=== PATIENT | female | born 1970 | race Caucasian/White ===

== ENCOUNTER 2016-08-09 13:17 | Emergency (ER) | payer MEDICARE | END 2016-08-09 16:22 | disposition home or self-care (01) | LOC: ER 13:17 | DX: S39.012A Strain of muscle, fascia and tendon of lower back, initial encounter (principal); R10.10 Upper abdominal pain, unspecified; R05 Cough; R51 Headache; R35.1 Nocturia; F31.9 Bipolar disorder, unspecified; K21.9 Gastro-esophageal reflux disease without esophagitis; E03.9 Hypothyroidism, unspecified; E78.5 Hyperlipidemia, unspecified; I10 Essential (primary) hypertension; Z90.710 Acquired absence of both cervix and uterus; Z98.51 Tubal ligation status; Z79.84 Long term (current) use of oral hypoglycemic drugs; X50.9XXA Other and unspecified overexertion or strenuous movements or postures, initial encounter | CPT/HCPCS: 36415; 96361; 96374; 96375; J1200; J2765 ==

== ENCOUNTER 2016-10-18 12:01 | Emergency (ER) | payer MEDICARE | END 2016-10-18 13:10 | disposition home or self-care (01) | LOC: ER 12:01 | DX: K02.9 Dental caries, unspecified (principal); I10 Essential (primary) hypertension; K21.9 Gastro-esophageal reflux disease without esophagitis; E78.00 Pure hypercholesterolemia, unspecified; E11.9 Type 2 diabetes mellitus without complications; F31.9 Bipolar disorder, unspecified; F41.9 Anxiety disorder, unspecified; F17.290 Nicotine dependence, other tobacco product, uncomplicated; J30.2 Other seasonal allergic rhinitis; Z90.710 Acquired absence of both cervix and uterus; Z88.0 Allergy status to penicillin; Z88.6 Allergy status to analgesic agent; Z88.5 Allergy status to narcotic agent; Z88.8 Allergy status to other drugs, medicaments and biological substances; Z79.899 Other long term (current) drug therapy; Z79.84 Long term (current) use of oral hypoglycemic drugs ==